=== PATIENT | male | born 1995 | race Caucasian/White ===

== ENCOUNTER 2016-08-21 12:21 | Emergency (ER) | payer OTHER ==
[2016-08-21] MEDS ORDERED: HYDROCODONE/APAP 5/325 TAB ONE (12:26)
[2016-08-21] MEDS ORDERED: ONDANSETRON 4 MG/2 ML VIAL ONE (12:28)
--- NOTE | 2016-08-21 14:14 | EDPHY ---
H & P Stated Complaint: Left wrist pain Time Seen by Provider: 08/21/16 12:25 HPI/ROS: CHIEF COMPLAINT: Left wrist pain HISTORY OF PRESENT ILLNESS: 21-year-old male presents to the emergency department by ambulance with a left wrist deformity. Patient fell on outstretched left hand while skateboarding today. He denies head strike, no loss of consciousness, no neck pain. Patient is [id number]. His only complaint is left wrist pain. He denies elbow pain, shoulder pain. - Medical/Surgical History Other PMH: denies. - Social History Smoking Status: Never smoked - Physical Exam Exam: GEN: Awake, alert, oriented, no acute distress RESP: nl resp effort MSK: Left wrist with swelling, obvious deformity, 2+ radial pulses, cap refill less than 2 seconds, sensation intact to light touch SKIN: No break in skin Constitutional: Initial Vital Signs Temperature (C) 36.6 C 08/21/16 12:36 Heart Rate 65 08/21/16 12:36 Respiratory Rate 16 08/21/16 12:36 Blood Pressure 136/78 H 08/21/16 12:36 O2 Sat (%) 95 08/21/16 12:36 O2 Delivery Mode Room Air Allergies/Adverse Reactions: No Known Allergies Allergy (Unverified 08/21/16 13:05) Home Medications: Medication Instructions Recorded Hydrocodone/APAP 5/325 [Winthrop 1 tab PO Q4H PRN #14 tab 08/21/16 5/325] Medical Decision Making - Diagnostics Imaging Results: Imaging Impressions Wrist X-Ray 08/21/16 12:30 Impression: Acute dorsally displaced and angulated Colles' fracture. Wrist X-Ray 08/21/16 13:47 Impression: Marked improvement. Imaging: I viewed and interpreted images myself Procedures: Procedure: Fracture reduction. Indication: Displaced fracture of the distal radius. Risks, benefits, alternatives discussed with the patient. Consent was obtained. The left wrist was anesthetized with 10 mL of 1% lidocaine without epinephrine mixed with 0.5% Marcaine without epinephrine in a hematoma block. Good anesthesia was obtained. Patient was placed in finger traps and hung for 5 minutes. Fracture was reduced using traction and manual manipulation without complications. The patient has a normal neurovascular exam distal to the injury post reduction. Patient tolerated the procedure well and is significantly more comfortable. Post reduction x-ray demonstrates reduction of the fracture to the anatomic position. The procedure was performed by myself. A sugar-tong Ortho Glass splint was applied. After application of the splint, I returned and re-examined the patient. The splint was adequately immobilizing the joint. The patients circulation and sensation were intact distal to the splint. Departure - Departure Disposition: Home, Routine, Self-Care Clinical Impression: Fracture of left distal radius Qualifiers: Encounter type: initial encounter Fracture type: closed Fracture morphology: Colles' Qualified Code(s): S52.532A - Colles' fracture of left radius, initial encounter for closed fracture Condition: Good Instructions: Wrist Fracture in Adults (ED) Additional Instructions: Rest, ice, elevate. Take 600 mg of ibuprofen every 8 hours with food for 3-5 days, take 1 Winthrop every 6-8 hours as needed for severe pain. Keep your splint clean and dry, do not removed. Follow up with orthopedist at 1st available appointment. Call to schedule this today. 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
[2016-08-21] MEDS ORDERED: IBUPROFEN 600 MG TAB PO ONE (14:16)
[2016-08-21] MEDS ORDERED: HYDROCODONE/APAP 5/325 TAB PO ONE (14:16)
[2016-08-21 14:39] VITALS: BP 97/69; PULSE 75; RESP 18; TEMP 97.7; O2SAT 93
== END 2016-08-21 14:39 | disposition home or self-care (01) ==
PROC: 0PSJXZZ Reposition Left Radius, External Approach (ICD-10-PCS; principal; 2016-08-21)
DX: S52.532A Colles' fracture of left radius, initial encounter for closed fracture (principal); V00.131A Fall from skateboard, initial encounter; Y99.8 Other external cause status; Y93.51 Activity, roller skating (inline) and skateboarding
CPT/HCPCS: A4565; J2405

== ENCOUNTER 2016-08-25 10:27 | Day surgery (SDC) | payer OTHER ==
--- NOTE | 2016-08-22 17:20 | GHP ---
[f rep st] PREOP HISTORY AND PHYSICAL DATE OF ADMISSION: 08/25/2016 DATE OF PLANNED PROCEDURE: 08/25/2016. PREOPERATIVE DIAGNOSIS: Displaced intra-articular distal radius fracture, left. PLANNED PROCEDURE: Open reduction, internal fixation, left distal radius fracture. HPI: Kali is a 21-year-old male who is here visiting and fell skateboarding about 3 days ago. Isidro wetzel was seen in the emergency department. Closed reduction was attempted. However, there was an intr a-articular split that they could not control. He was placed in a splint and presented to our offic e. He was evaluated in the office today, and decision was made to proceed with open reduction, inte rnal fixation of his distal radius fracture. PRIOR MEDICAL HISTORY: Unremarkable. PRIOR SURGICAL HISTORY: None. MEDICATIONS: None. ALLERGIES: No known drug allergies. SOCIAL HISTORY: He does not smoke. Reports occasional alcohol use. REVIEW OF SYSTEMS: Unremarkable. PHYSICAL EXAM: GENERAL: Healthy-appearing 21-year-old male. He is alert oriented x3. HEENT: Nor mocephalic atraumatic. Extraocular muscles intact. NECK: Supple. There is no lymphadenopathy. N o JVD. CHEST: Clear to auscultation. CARDIOVASCULAR: Regular rate and rhythm. ABDOMEN: Soft, n ontender, nondistended. EXTREMITIES: Right wrist is swollen. There is some ecchymosis volarly, an d sensation in median nerve is intact. He is moving his fingers well. The splint is fitting approp riately. X-RAYS: Three views of the wrist are reviewed. They show an intra-articular split on the ulnar anne e that is displaced. ASSESSMENT: Intra-articular split distal radius fracture left wrist. PLAN: It was recommended to Kali that we proceed with open reduction, internal fixation to close down that displaced fragment in an attempt to avoid future arthritis in the wrist. He is in [facility] ent with that plan. The risks and benefits of the surgery including neurovascular injury, stiffness , infection, were all discussed. He understands these risks and wished to proceed. He will be in [facility] for another 2 weeks, and his preoperative paperwork was completed. We will plan on surgery Thursday at [facility]. /[id number]/MODL
[2016-08-25] MEDS ORDERED: ceFAZolin 2 GM/DEXTROSE 100 ML IV ONE (11:10)
[2016-08-25] MEDS ORDERED: LIDOCAINE 1% 2 ML INJ ID PRN (11:13)
[2016-08-25] MEDS ORDERED: LR 1,000 ML IV ONE (11:13)
[2016-08-25] MEDS ORDERED: BUPIVACAINE/EPI 0.5% 30 ML SDV ONE (12:03)
--- NOTE | 2016-08-25 12:41 | PDANEPAE ---
ANE History of Present Illness 21 yo male after skateboarding accident with L wrist fracture, unable to reduce in ER. ANE Past Medical History - Cardiovascular History Hx Hypertension: No Hx Arrhythmias: No Hx Palpitations: No - Pulmonary History Hx Asthma/Reactive Airway Disease: No Hx Recent Upper Respiratory Infection: No Hx Oxygen in Use at Home: No Hx Sleep Apnea: No - Surgical History Prior Surgeries: none ANE Review of Systems Review of systems is: negative Review of Systems: No fever/URI in past 2 weeks. ANE Patient History - Allergies Allergies/Adverse Reactions: No Known Allergies Allergy (Unverified 08/21/16 13:05) - NPO status NPO Since - Liquids (Date): 08/24/16 NPO Since - Liquids (Time): 23:59 NPO Since - Solids (Date): 08/24/16 NPO Since - Solids (Time): 21:00 - Anes Hx Hx Anesthesia Complications (with details): Pt has never has anesthesia before. - Smoking Hx Smoking Status: Never smoked - Alcohol Use Alcohol Use: Occasionally - Family Anes Hx Family Anes Hx: none, neg - N/A Family Hx Anesthesia Complications: No family history of MH or muscular dystrophy. ANE Labs/Vital Signs - Vital Signs Blood Pressure: 128/74 Heart Rate: 46 Respiratory Rate: 16 O2 Sat (%): 94 ANE Physical Exam - Airway Neck exam: FROM Mallampati Score: Class 2 Mouth exam: normal dental/mouth exam - Pulmonary Pulmonary: clear to auscultation - Cardiovascular Cardiovascular: regular rate and rhythym - ASA Status ASA Status: I ANE Anesthesia Plan Anesthesia Plan: GA w LMA Regional Anesthesia: single shot NB (radial nerve block)
[2016-08-25] MEDS ORDERED: MIDAZOLAM 2 MG/2 ML VIAL IVP ONE (12:44)
[2016-08-25] MEDS ORDERED: DEXAMETHASONE 4 MG/ML VIAL ONE ×2 (12:55)
[2016-08-25] MEDS ORDERED: fentaNYL 100 MCG/2 ML INJ ONE ×5 (12:55→16:41)
[2016-08-25] MEDS ORDERED: PROPOFOL/EMULSION 500 MG/50 ML BOTTLE IV ONE (12:55)
[2016-08-25] MEDS ORDERED: BUPIVACAINE 0.5% 30 ML SDV ONE (12:58)
[2016-08-25] MEDS ORDERED: ONDANSETRON 4 MG/2 ML VIAL ONE (13:38)
[2016-08-25] MEDS ORDERED: ACETAMINOPHEN 500 MG TAB PO PRN (14:25)
[2016-08-25] MEDS ORDERED: PROMETHAZINE HCL 25 MG/ML INJ IVP PRN (14:25)
[2016-08-25] MEDS ORDERED: LR 500 ML IV PRN (14:25)
[2016-08-25] MEDS ORDERED: HYDROCODONE/APAP 5/325 TAB PO PRN (14:25)
[2016-08-25] MEDS ORDERED: NALOXONE HCL 0.4 MG/ML INJ IVP PRN (14:25)
--- NOTE | 2016-08-25 14:51 | POSTOPPROG ---
Post Op Note Date of Operation: 08/25/16 Surgeon: Zack Chu Anesthesiologist: ansari Anesthesia: GET(General Endotracheal) Pre-op Diagnosis: distal radius fracture left Post-op Diagnosis: same Procedure: ORIF distal radius Findings: displaced intraarticular distal radius fx Inf/Abcess present in the surg proc area at time of surgery?: No EBL: Minimal Complications: none
[2016-08-25] MEDS: fentaNYL 100 MCG/2 ML INJ IVP PRN ×5 (15:00→16:52)
[2016-08-25] MEDS ORDERED: oxyCODONE IR 5 MG TAB PO PRN ×2 (15:49→15:50)
[2016-08-25] MEDS ORDERED: HYDROCODONE/APAP 5/325 TAB ONE (15:52)
[2016-08-25 16:39] VITALS: PULSE 59; RESP 16; TEMP 99.7
[2016-08-25 17:29] VITALS: BP 127/60; O2SAT 86
--- NOTE | 2016-08-26 08:46 | GOP ---
[f rep st] OPERATIVE REPORT DATE OF OPERATION: 08/25/2016 SURGEON: Zack Chu MD ANESTHESIA: Radial nerve block with general. ANESTHESIOLOGIST: Dr. Oliveros. PREOPERATIVE DIAGNOSIS: Left distal radius intra-articular fracture, displaced. POSTOPERATIVE DIAGNOSIS: Left distal radius intra-articular fracture, displaced. PROCEDURE PERFORMED: Open reduction and internal fixation, left distal radius fracture. FINDINGS: DESCRIPTION OF PROCEDURE: After appropriate informed consent was obtained, the patient was taken to the operating room and placed supine on the operating table. Time-out was performed. Patient was identified, correct site was identified. He received 2 g of Ancef preoperatively. Following a radi al nerve block, Dr. Oliveros administered general endotracheal anesthesia. Left upper extremity was prepped and draped in the usual sterile fashion. Exsanguinated the limb and inflated the tourniquet to 250 mmHg. Total tourniquet time was 74 minutes. I made a standard volar incision. The soft ti ssues were carefully dissected. The interval over the flexor carpi radialis was developed. Pronato r muscle was elevated off the bone. The fracture had 4 pieces, 1 large intra-articular piece, a rad ial and an ulnar styloid fragment. Using a [place], I elevated these up and held them in place with K -wires, placed a volar plate. I placed 1 screw in the shaft, adjusted the position slightly and the n placed a series of compression distal screws followed by distal locking screws and then 2 more loc darin screws on the shaft. Final imaging was obtained which showed satisfactory reduction of the fra cture. The wound was irrigated. Instrumentation was withdrawn. The skin was closed with 2-0 Vicry l and 3-0 Monocryl. Steri-Strips were applied to the skin. In instilled 10 mL of 0.5% Marcaine jazmin und the incision. A sterile dressing and a volar splint were applied. Patient was awakened from an esthesia and taken to the recovery room in satisfactory condition. There were no immediate intraope rative complications. TOTAL TOURNIQUET TIME: 74 minutes at 250 mmHg. IMPLANTS USED: [employer] volar wrist plate. COMPLICATIONS: None. DRAINS: None. HISTORY: The patient is a 21-year-old male who is visiting here who sustained an intra-articular di stal radius fracture skateboardSnaapiq. This was close reduced. Followup x-ray showed displacement of the ulnar-sided fragment. The decision was made to proceed with open reduction and internal fixatio n. /[id number]/MODL
== END 2016-08-25 17:07 | disposition home or self-care (01) ==
LOC: FSGY 10:27
PROVIDERS: ATTEND Orthopaedic Surgery
PROC: 0PSJ04Z Reposition Left Radius with Internal Fixation Device, Open Approach (ICD-10-PCS; principal; 2016-08-25 13:00)
PROC: 0PSL0ZZ Reposition Left Ulna, Open Approach (ICD-10-PCS; principal; 2016-08-25 13:00)
DX: S52.572A Other intraarticular fracture of lower end of left radius, initial encounter for closed fracture (principal); S52.612A Displaced fracture of left ulna styloid process, initial encounter for closed fracture; V00.131A Fall from skateboard, initial encounter; Y93.51 Activity, roller skating (inline) and skateboarding; Y92.39 Other specified sports and athletic area as the place of occurrence of the external cause; Y99.8 Other external cause status
CPT/HCPCS: C1713; J0690; J1100; J2250; J2405; J2704; J3010